=== PATIENT | female | born 1950 | race Caucasian/White ===

== ENCOUNTER → 2018-11-04 | Outpatient (CLI) | payer OTHER, MEDICARE ==
[~2018-11-04] VITALS: Ht 198.1 cm; Wt 78.5 kg
[~2018-11-04] MED LIST: ALEVE220 MG PO; AMLODIPINE BESY10 MG PO; CALCIUM 600 +1 EAC1 PO; CIPROFLOXACIN500 M3; HYDROCODON-ACE1 EAC7; HYDROCODON-ACE1 EAC7 PO; MAGOX 400400 MG PO; METRONIDAZOLE500 M4; MULTIVITAMINS PO; NOHOMEMEDICATIONS; PRILOSEC 20 MG20 MG PO; VITAMIN D35000 UNI1 PO; VITAMIN E400 UNIT PO; ZOLOFT25 MG PO; ZYLET OPHTHALMIC
--- NOTE | ~2018-11-04 | HPC ---
[facility] [address] [address] PAIN MANAGEMENT CONSULTATION Name: ASAF BARBOUR Room #: REG AMY Clyde#: [id number] Admission: 11/04/18 ������������������ Attend Phys: Jed Love MD Discharge: ������������������ Date of : 46 Report #: [id number] THIS REPORT FOR: //name// CC: Mario Love DATE OF SERVICE: 11/04/2018 CHIEF COMPLAINT: Left deltoid pain and left sacroiliac joint pain following a fall and injury. My friend, the patient, is here today at the request of Dr. Colon for assessment of pain in the left shoulder and low back. She complains of pain in 2 locations, one just below the deltoid at the attachment and in the area of the bicep as well as pain in the sacroiliac joint. Dr. Montez Penaloza has performed sacroiliac injections in the past for pain and she says it feels much like that. The pain and low back is constant, aching 7-8/10. The pain in the biceps is similar. She has not done physical therapy and has been abating the pain without using her arm because the pain is pretty severe. She has some medication in the form of nonsteroidal anti-inflammatory drugs, but has not taken anything stronger. MEDICATIONS: Amlodipine, sertraline, omeprazole. ALLERGIES: SULFA. PAST MEDICAL HISTORY: Hypertension and some arthritis. PQRS REVIEW: 1. Arthritis as noted in multiple joints. 2. Vital signs: Blood pressure is 154/84, heart rate 72, respirations 16, O2 sat 98. 3. BMI is 30.4. 4. Pain intensity 7-8/10. 5. She is not a fall risk. 6. No blood thinners. 7. History of hypertension, treated by Dr. Colon. Medications were reviewed and reconciled. 8. She takes no opioid medications. 9. She has completed an opioid risk tool and considered low risk for addiction. 10. Functional assessment score is 49/70, suggesting significant interference. 11. She denies use of tobacco, but drinks alcohol in a social setting several times a week. PHYSICAL EXAMINATION: This is a pleasant 68-year-old female. Vital signs are [facility] [address] [place] [address] PAIN MANAGEMENT CONSULTATION Name: ASAF BARBOUR Room #: [facility].#: [id number] Admission: 11/04/18 ������������������ Attend Phys: Jed Love MD Discharge: ������������������ Date of : 46 Report #: [id number] as noted above. Examination of the left arm reveals no obvious abnormalities of the biceps or the deltoid. There is no swelling, redness, or inflammation. There is no evidence of bruising or swelling. Range of motion is adequate in abduction, internal and external rotation in the shoulder. There is some mild tenderness of the supraclavicular region in the trapezius. Biceps and triceps function are adequate, although they reproduce pain at extremes. There is no radiating pain into the arm. No evidence of hypersympathetic activity. Client Services Manager strength is equal bilaterally. Examination of the low back reveals tenderness across the lumbosacral segment. There is localized tenderness of the left sacroiliac joint, which is consistent with her previous sacroiliitis. IMPRESSION: 1. Soft tissue trauma of the left upper arm. I do not think this is more than that. X-rays have been negative. This should heal with physical therapy and she has an appointment tomorrow. 2. Sacroiliac joint pain on the left. Potential risks and benefits of sacroiliac injection were reviewed. She may also benefit from the use of nonsteroidal anti-inflammatory drug and I have suggested she continue with naproxen sodium. PROCEDURE: Sacroiliac joint on the left. She was taken to fluoroscopic suite. She was placed prone, skin was prepped with ChloraPrep. A 22-gauge spinal needle advanced into the sacroiliac joint in its inferior posterior access point. A 0.25 mL of Omnipaque demonstrated excellent arthrogram, was then followed by 1 mL of 0.5% bupivacaine mixed with 40 mg of triamcinolone. She tolerated the injection well and pain was diminished in recovery room to 0. Follow up as needed. ��������������������������������������������� ���������������������������������������� By: ��������������������������������������������� [id number] Jed Love MD /nt
[2018-11-04 14:24] VITALS: BP 154/84
--- NOTE | 2018-11-04 14:29 | NUR ---
Pain Clinic Assessment: 1. History of Osteoarthritis: History of Rheumatoid Arthritis: 2. Height: 6 ft. 6 in. 198.1 cm. Weight: 173.0 lb. oz. 78.472 kg. Patient's BMI: 20.0 3. Vital Signs: BP: 154/84 Pulse: 72 Resp: 16 Temp: 02 Sat: 98 ECG Mon: 4. Pain Intensity: 7-8 5. Fall Risk: Dizziness: N Needs help standing or walking: N Fallen in the last 3 months: N Fall risk comments: 6. Patient on Blood Thinner: None 7. History of Hypertension: Y 8. Opioid Therapy greater than 6 weeks: N Opiate Contract Signed: 9. Risk Assessment Tool Provided: LOW 10. Functional Assessment Tool: 49/70 11. Recreational Drug Use: Never Drug Type: Tobacco Use: Never Smoker Tobacco Type: Amount or Packs/day: How Many Years: Alcohol Use: Yes Frequency: Weekly Quant: 7
== END | disposition home or self-care (01) ==
LOC: PAIN 06:58
DX: M53.3 Sacrococcygeal disorders, not elsewhere classified (principal); I10 Essential (primary) hypertension; M19.90 Unspecified osteoarthritis, unspecified site; Z79.899 Other long term (current) drug therapy; Z88.2 Allergy status to sulfonamides

== ENCOUNTER → 2018-12-05 | Outpatient (CLI) | payer OTHER, MEDICARE ==
[~2018-12-05] VITALS: Ht 167.6 cm; Wt 77.7 kg
--- NOTE | ~2018-12-05 | HPC ---
[facility] [address] [place] [address] PAIN MANAGEMENT CONSULTATION Name: ASAF BARBOUR Room #: REG Kinsey Maldonado.#: [id number] Admission: 12/05/18 Attend Phys: Jed Love MD Discharge: Date of : 46 Report #: [id number] THIS REPORT FOR: //name// CC: JENNY Love DATE OF SERVICE: 12/05/2018 Followup visit for low back pain. I saw the patient on 11/04/2018. We performed a left sacroiliac injection. Excellent arthrogram was obtained with the injection, and she received pain relief of a similar nature, excellent. She was moving about her garage, stepped over some boards in an awkward manner and aggravated her low back, this time on the right. She describes the pain in a fairly similar manner across the lumbosacral segment with localized tenderness of the right sacroiliac joint. She has some chronic lumbar spondylotic pain due to facet arthropathy. She has been treated in the past with both epidural injections and facet injection by my partner, Dr. Montez Penaloza. PQRS REVIEW: 1. Arthritis in multiple joints. 2. Vital signs: Blood pressure 137/87, heart rate 85, O2 sat 97, BMI 27.2. 3. Pain intensity is 7/10. 4. Fall risk. 5. No blood thinners. 6. History of hypertension, under treatment. 7. She denies use of opioids and tries to avoid stronger pain medications. 8. Low risk assessment tool score. 9. Functional assessment score is 49/70 since her injury. 10. She denies use of tobacco, drinks alcohol once or twice weekly in a social setting. PHYSICAL EXAMINATION: Vital signs as noted above. She moves independently from sitting to standing position. Gait is mildly antalgic. There is marked tenderness over the right sacroiliac joint. There is a positive PRAVEEN test exacerbating pain on the contralateral side. Straight leg raising is negative for radiculopathy. IMPRESSION: Sacroiliitis, sacroiliac joint pain. This is responding very nicely to injections in the past. She has a trip planned in the next week to leave for [facility] for up to 3 weeks. She will be doing the [email or web address], a long walk. We discussed the use of an injection to provide relief for her long flight and for her upcoming vacation [address] [address] PAIN MANAGEMENT CONSULTATION Name: ASAF BARBOUR [id number] Admission: 12/05/18 Attend Phys: Jed Love MD Discharge: Date of : 46 Report #: [id number] trip. Potential benefits and risks of the injection were discussed. PROCEDURE: Right sacroiliac injection under fluoroscopic guidance. She was taken to fluoroscopic suite, placed prone, skin prepped with ChloraPrep. Skin anesthetized over the right SI joint. A 22-gauge needle was advanced in the posterior inferior capsule. A 0.25 mL of Omnipaque was injected. Excellent arthrogram was once again obtained. I injected 1 mL of 0.5% bupivacaine mixed with 40 mg of triamcinolone. She tolerated the procedure well. Pain score was 0 in recovery room, discharged shortly thereafter and to followup as needed. I did provide her with a prescription for 20 hydrocodone, 5/325 mg tablets, to take with her on her vacation. If she stranded after her long day with significant pain, this will provide her with something to take. She will carefully safeguard the medication. By: [id number] Jed Love MD /nt
[2018-12-05 14:43] VITALS: BP 137/87
--- NOTE | 2018-12-05 15:00 | NUR ---
Pain Clinic Assessment: 1. History of Osteoarthritis: Not Applicable History of Rheumatoid Arthritis: Not Applicable 2. Height: 5 ft. 6 in. 167.6 cm. Weight: 171.4 lb. oz. 77.747 kg. Patient's BMI: 27.7 3. Vital Signs: BP: 137/87 Pulse: 85 Resp: 16 Temp: 02 Sat: 97 ECG Mon: 4. Pain Intensity: 7 5. Fall Risk: Dizziness: N Needs help standing or walking: N Fallen in the last 3 months: N Fall risk comments: 6. Patient on Blood Thinner: None 7. History of Hypertension: Y 8. Opioid Therapy greater than 6 weeks: N Opiate Contract Signed: 9. Risk Assessment Tool Provided: LOW 10. Functional Assessment Tool: 49/70 11. Recreational Drug Use: Never Drug Type: Tobacco Use: Never Smoker Tobacco Type: Amount or Packs/day: How Many Years: Alcohol Use: Yes Frequency: Weekly Quant: 1-2
== END | disposition home or self-care (01) ==
LOC: PAIN 11-25 06:51
DX: M53.3 Sacrococcygeal disorders, not elsewhere classified (principal); G89.29 Other chronic pain; M19.90 Unspecified osteoarthritis, unspecified site; I10 Essential (primary) hypertension; Z88.2 Allergy status to sulfonamides; Z79.899 Other long term (current) drug therapy; Z98.890 Other specified postprocedural states

== ENCOUNTER → 2019-08-20 | Outpatient (CLI) | payer OTHER, MEDICARE | LOC: BC 08:53 | DX: Z12.31 Encounter for screening mammogram for malignant neoplasm of breast (principal) ==

== ENCOUNTER → 2019-09-15 | Outpatient (CLI) | payer OTHER, MEDICARE | LOC: NUC 12:42 | PROVIDERS: ATTEND Family Medicine | DX: M85.88 Other specified disorders of bone density and structure, other site (principal) ==